=== PATIENT | male | born 1955 | race Caucasian/White ===

== ENCOUNTER 2018-10-28 10:44 | Emergency (ER) | payer BC, MEDICAID ==
--- NOTE | 2018-10-28 11:29 | ED Physician Documentation ---
PD HPI MALE - Stated complaint Stated Complaint: BLOOD IN URINE - Chief complaint Chief Complaint: General - History obtained from History obtained from: Patient - History of Present Illness Timing - onset: Today Timing - duration: Hours Timing - details: Abrupt onset (feeling okay and then had urination this morning and noted grossly bloody.) Associated symptoms: Hematuria. No: Dysuria, Urinary frequency, Genital sore / lesion, Abdominal pain PD HPI MALE CONTRIB FACTORS: Not sexually active. No: Exposed to STD Similar symptoms before: Has not had sx before Recently seen: Not recently seen Review of Systems Constitutional: denies: Fever, Chills, Myalgias Nose: denies: Rhinorrhea / runny nose, Congestion Throat: denies: Sore throat Respiratory: denies: Cough : reports: Hematuria. denies: Dysuria Skin: denies: Rash, Lesions PD PAST MEDICAL HISTORY - Past Medical History Cardiovascular: Peripheral Vascular Disease Respiratory: None Neuro: None Endocrine/Autoimmune: None - Present Medications Home Medications: Ambulatory Orders Medication Instructions Recorded Confirmed Aspirin 81 mg PO 10/28/18 10/28/18 Clopidogrel [Plavix] 75 mg PO DAILY 10/28/18 10/28/18 Sulfamethox/Trimeth 800/160 1 each PO BID #14 tablet 10/28/18 [Bactrim Ds 800/160] - Allergies Allergies/Adverse Reactions: Allergies Allergy/AdvReac Type Severity Reaction Status Date / Time No Known Drug Allergies Allergy Verified 10/28/18 11:03 PD ED PE NORMAL - Vitals Vital signs reviewed: Yes - General General: Alert and oriented X 3, No acute distress, Well developed/nourished - Cardiac Cardiac: RRR, No murmur - Respiratory Respiratory: Clear bilaterally - Abdomen Abdomen: Soft, Non tender - Male Male : Other (normal external genitalia. No lesions. ) - Derm Derm: Normal color, Warm and dry - Neuro Neuro: Alert and oriented X 3, No motor deficit, Normal speech Results - Vitals Vitals: Vital Signs - 24 hr 10/28/18 10/28/18 11:03 13:14 Temperature 36.5 C Heart Rate 75 64 Respiratory 17 16 Rate Blood Pressure 141/94 H 139/83 H O2 Saturation 96 98 Oxygen O2 Source Room air - Labs Labs: Laboratory Tests 10/28/18 10/28/18 10/28/18 11:47 12:11 12:11 WBC 9.2 RBC 4.47 L Hgb 15.2 Hct 44.7 MCV 100.0 H MCH 34.0 H MCHC 34.0 RDW 13.0 Plt Count 309 MPV 9.4 Neut # (Auto) 6.1 Lymph # (Auto) 2.1 [place] # (Auto) 0.6 Eos # (Auto) 0.3 Baso # (Auto) 0.1 Absolute Nucleated RBC 0.00 Nucleated RBC % 0.0 Sodium 140 Potassium 4.3 Chloride 106 Carbon Dioxide 26 Anion Gap 8.0 BUN 15 Creatinine 1.1 Estimated GFR (MDRD) 68 L Glucose 117 H Calcium 9.2 Urine Color BROWN Urine Clarity CLOUDY Urine pH 6.5 Ur Specific [place] 1.025 Urine Protein >=300 H Urine Glucose (UA) 100 H Urine Ketones TRACE Urine Occult Blood LARGE H Urine Nitrite POSITIVE H Urine Bilirubin NEGATIVE Urine Urobilinogen 2 H Ur Leukocyte Esterase SMALL H Urine RBC TNTC H Urine WBC 6-10 H Ur Squamous Epith Cells NONE SEEN Urine Bacteria Few Ur Microscopic Review INDICATED Urine Culture Comments INDICATED PD MEDICAL DECISION MAKING - ED course Complexity details: considered differential (looks like a true UTI on UA, so can treat as that. Talked with patient about potential Urology f/u for concern of polyps, tumors, or such that could be causing bleeding, enhanced by the antiplatelet therapy. ), d/w patient Departure - Departure Disposition: 01 Home, Self Care Clinical Impression: Gross hematuria UTI (urinary tract infection) Qualifiers: Urinary tract infection type: acute cystitis Hematuria presence: with hematuria Qualified Code(s): N30.01 - Acute cystitis with hematuria Condition: Stable Record reviewed to determine appropriate education?: Yes Instructions: ED UTI Cystitis Male Follow-Up: Rayn Cam MD [Primary Care Provider] - Prescriptions: Sulfamethox/Trimeth 800/160 [Bactrim Ds 800/160] 1 each PO BID #14 tablet Comments: The urinalysis test today actually does show signs of an infection (they were able to discern that in with the blood as well). Therefore infection is the most likely cause of the blood in the urine, enhanced by the bleeding effect of the clopidogrel. Your blood count is good right now so it is "safe" for you to still have some bleeding while the infection is clearing. I would anticipate improving in the bleeding over the next day or two. Use Bactrim antibiotic twice daily for the next week for the bladder infection. Recheck if the bleeding has not decreased and stopped over the next 1 to 2 days. Hold your Plavix for 1 to 2 days until the bleeding has decreased or stopped. Discharge Date/Time: 10/28/18 13:14
[2018-10-28 12:03] LABS: GLUCOSE, URINE (UA) 100 mg/dL (NEGATIVE); KETONES,URINE (UA) TRACE mg/dL (NEGATIVE); LEUKOCYTE ESTERASE, URINE SMALL (NEGATIVE); NITRITE,URINE POSITIVE (NEGATIVE); OCCULT BLOOD,URINE LARGE (NEGATIVE); PH,URINE 6.5 PH (5.0-7.5); PROTEIN,URINE >=300 mg/dL (NEGATIVE); UROBILINOGEN,URINE 2 E.U./dL (NORMAL)
[2018-10-28 12:04] LABS: CLARITY,URINE CLOUDY (CLEAR)
[2018-10-28] MEDS ORDERED: SULFAMETH/TRIMETH DS 800/160 MG TABLET PO STA (12:04)
[2018-10-28 12:08] LABS: BILIRUBIN,URINE NEGATIVE (NEGATIVE); ICTOTEST,URINE NEGATIVE
[2018-10-28 12:16] LABS: RBC,URINE TNTC /HPF (0-5)
[2018-10-28 12:17] LABS: BACTERIA,URINE Few /HPF (None Seen); SQUAMOUS EPITHELIAL CELL,UR NONE SEEN (<= Few)
[2018-10-28 12:18] LABS: BASOPHILS # (AUTO) 0.1 10^3/uL (0.0-0.1); EOSINOPHILS # (AUTO) 0.3 10^3/uL (0.0-0.7); EOSINOPHILS % (AUTO) 2.8 %; HGB - HEMOGLOBIN 15.2 g/dL (14.0-18.0); LYMPHOCYTES # (AUTO) 2.1 10^3/uL (1.5-3.5); LYMPHOCYTES % (AUTO) 23.4 %; MEAN PLATELET VOLUME 9.4 fL (7.4-11.4); MONOCYTES # (AUTO) 0.6 10^3/uL (0.0-1.0); MONOCYTES % (AUTO) 6.1 %; NEUTROPHILS # (AUTO) 6.1 10^3/uL (1.5-6.6); NEUTROPHILS % (AUTO) 66.2 %; PLT - PLATELET COUNT 309 10^3/uL (130-450); RED BLOOD COUNT 4.47 10^6/uL (4.70-6.10); WHITE BLOOD COUNT 9.2 x10^3/uL (4.8-10.8)
[2018-10-28 12:29] LABS: CALCIUM 9.2 mg/dL (8.5-10.3); CREATININE 1.1 mg/dL (0.6-1.2)
[2018-10-28 13:15] VITALS: BP 139/83
== END 2018-10-28 13:14 | disposition home or self-care (01) ==
LOC: ED 10:44
DX: N30.01 Acute cystitis with hematuria (principal); Z79.01 Long term (current) use of anticoagulants
CPT/HCPCS: 36415; 80048; 81001; 85025; 87086; 99283; A9270; 81003

== ENCOUNTER 2018-10-30 17:55 | Outpatient (CLI) | payer MEDICAID ==
[2018-10-30] MEDS ORDERED: IOVERSOL 320 100 ML VIAL IVP ONE ×2 (18:33→19:11)
--- NOTE | 2018-10-30 23:10 | CT Report ---
Reason: HEMATURIA Procedure Date: 10/30/2018 Accession Number: [id number] / [id number] Procedure: CT - IVP CPT Code: FULL RESULT: EXAM: CT ABDOMEN AND PELVIS WITHOUT AND WITH CONTRAST (CT IVP) EXAM DATE: 10/30/2018 06:58 PM CLINICAL HISTORY: Hematuria. COMPARISONS: None. TECHNIQUE: Routine helical imaging was performed through the kidneys, ureters and bladder in the precontrast, postcontrast and delayed phase. IV Contrast: Yes. Reconstructions: Coronal and sagittal. In accordance with CT protocol optimization, one or more of the following dose reduction techniques were utilized for this exam: automated exposure control, adjustment of mA and/or KV based on patient size, or use of iterative reconstructive technique. FINDINGS: Lung Bases: Unremarkable. Right Kidney/Ureter: No stones, hydronephrosis, or solid-appearing masses. Left Kidney/Ureter: Approximately 2 mm nonobstructing left renal stone. No ureteral stones, hydronephrosis, or solid-appearing masses. Other Abdominal Organs: The liver, spleen, pancreas, gallbladder, and adrenal glands are unremarkable. Peritoneal Cavity/Bowel: No free fluid, free air or adenopathy. No masses. Bowel loops appear unremarkable. Pelvic Organs: Polypoid high-density masslike region at the posterior right paramedian aspect of the urinary bladder measuring approximately 36 x 34 mm in cross section and extending 39 mm in craniocaudal dimension. No other bladder masses or wall thickening seen. Prostate appears unremarkable. Vasculature: Normal. Bones: No significant abnormality. Other: No pelvic or retroperitoneal adenopathy. IMPRESSION: 1. Nearly 4 cm polypoid masslike region in the posterior aspect of the right paramedian urinary bladder could be partly hematoma but follow-up cystoscopy necessary to evaluate for concomitant urothelial carcinoma. 2. No evidence of metastatic disease in the abdomen/pelvis. 3. Tiny nonobstructing left renal stone. [facility] The call report notification system was initiated by Dr. Ciaran Zuniga at 11:09 PM on 10/30/2018.
== END 2018-10-30 17:56 | disposition home or self-care (01) ==
LOC: DI 17:55
PROVIDERS: ATTEND Family Medicine
DX: N32.89 Other specified disorders of bladder (principal); N20.0 Calculus of kidney
CPT/HCPCS: 74178

== ENCOUNTER 2018-11-03 11:23 | Emergency (ER) | payer MEDICAID ==
--- NOTE | 2018-11-03 12:24 | ED Physician Documentation ---
PD HPI MALE - Stated complaint Stated Complaint: CATH DISCOMFORT - Chief complaint Chief Complaint: UTI - History obtained from History obtained from: Patient - History of Present Illness Timing - onset: Yesterday Timing - duration: Days (couple) Timing - details: Gradual onset, Intermittant Associated symptoms: Hematuria (He is continued to have hematuria though its less than it had been.), Other (His main complaint today is discomfort at the tip of the penis when he moves around due to the Moore catheter. He had had t hat placed a couple of days ago because of urinary retention related to blood clots in the bladder from gross hematuria. He has been treated with a hematuria and apparent concurrent UTI 5 or 6 days prior to that. He states that had been improving though still having blood in the urine. He the Moore is draining without any clots notable the last day or 2. He states the tip of the penis is sore however) Recently seen: Clinic (Seen by urology in follow-up 4 days ago with a review of the CT scan he had had and the symptoms. He was told he does have a bladder tumor and is scheduled for a cystoscopic biopsy in 2 days. He is off of his aspirin and Plavix which had been held for couple days when he first presented with the hematuria. He had been on antibiotics for apparent UTI and is finished with those. He had a Moore placed few days ago because of urinary retention from clots.), Emergency Dept Review of Systems Constitutional: denies: Fever, Chills Nose: denies: Rhinorrhea / runny nose, Congestion Throat: denies: Sore throat Cardiac: denies: Chest pain / pressure Respiratory: denies: Cough GI: denies: Nausea, Vomiting : reports: Hematuria, Moore Problem Neurologic: denies: Generalized weakness PD PAST MEDICAL HISTORY - Past Medical History Cardiovascular: Peripheral Vascular Disease Respiratory: None Neuro: None Endocrine/Autoimmune: None : Benign prostate hypertrophy - Present Medications Home Medications: Ambulatory Orders Medication Instructions Recorded Confirmed Aspirin 81 mg PO 10/28/18 10/28/18 Clopidogrel [Plavix] 75 mg PO DAILY 10/28/18 10/28/18 Sulfamethox/Trimeth 800/160 1 each PO BID #14 tablet 10/28/18 [Bactrim Ds 800/160] Cephalexin [Keflex] 500 mg PO TID #15 capsule 11/03/18 Clotrimazole 1 applic TP QID #15 cream..g. 11/03/18 - Allergies Allergies/Adverse Reactions: Allergies Allergy/AdvReac Type Severity Reaction Status Date / Time No Known Drug Allergies Allergy Verified 10/30/18 19:58 - Social History Does the pt smoke?: Yes Smoking Status: Current every day smoker PD ED PE NORMAL - Vitals Vital signs reviewed: Yes - General General: Alert and oriented X 3, No acute distress, Well developed/nourished - Male Male : Other (moore in place and draining. suprapubic not tender. The penile meatus with some redness around the rim, c/w either irritation or consider mild yeast. Does not look bacterial and no purulence noted. ) - Back Back: No CVA TTP - Derm Derm: Normal color, Warm and dry Results - Vitals Vitals: Vital Signs - 24 hr 11/03/18 11/03/18 11/03/18 11:28 11:57 13:00 Temperature 36.3 C L 36.8 C Heart Rate 86 75 74 Respiratory 18 18 16 Rate Blood Pressure 144/84 H 136/79 H 129/115 H O2 Saturation 100 96 95 11/03/18 13:26 Temperature 36.5 C Heart Rate 72 Respiratory 16 Rate Blood Pressure 137/84 H O2 Saturation 97 Oxygen O2 Source Room air - Labs Labs: Laboratory Tests 11/03/18 12:20 Urine Color YELLOW Urine Clarity HAZY Urine pH 5.5 Ur Specific [place] 1.025 Urine Protein 30 H Urine Glucose (UA) NEGATIVE Urine Ketones NEGATIVE Urine Occult Blood LARGE H Urine Nitrite NEGATIVE Urine Bilirubin NEGATIVE Urine Urobilinogen 0.2 (NORMAL) Ur Leukocyte Esterase NEGATIVE Urine RBC 11-25 H Urine WBC 6-10 H Ur Squamous Epith Cells RARE Squamous Urine Bacteria Few Urine Mucus Few Strands Ur Microscopic Review INDICATED Urine Culture Comments INDICATED PD MEDICAL DECISION MAKING - ED course Complexity details: reviewed results (suggestion of some UTI still, and will treat for that so that okay for cystoscopy in 2 days. ), considered differential, d/w patient Departure - Departure Disposition: 01 Home, Self Care Clinical Impression: Penile irritation Condition: Stable Record reviewed to determine appropriate education?: Yes Prescriptions: Cephalexin [Keflex] 500 mg PO TID #15 capsule Clotrimazole 1 applic TP QID #15 cream..g. Comments: I would keep the Moore catheter in place to ensure he keeps draining well since he is still have trace of blood in the urine. There is still a mild sign of infection with some white cells in a few bacteria and would be best not to have an infection at the time of the biopsy. Therefore week ago with cephalexin antibiotic 3 times daily for the next few days. This would have no interference with other medications and not prohibit being able to have the biopsy. Use some Chlortrimazole cream to the tip of the penis as it looks just slightly irritated from the Moore and may have a hint of a fungal skin infection. This will help lubricated as well. Do this 3 or 4 times a day. Follow-up with your urologist as planned for the cystoscopic biopsy in a couple of days. Discharge Date/Time: 11/03/18 13:28
[2018-11-03 12:41] LABS: BILIRUBIN,URINE NEGATIVE (NEGATIVE); GLUCOSE, URINE (UA) NEGATIVE (NEGATIVE); KETONES,URINE (UA) NEGATIVE (NEGATIVE); LEUKOCYTE ESTERASE, URINE NEGATIVE (NEGATIVE); NITRITE,URINE NEGATIVE (NEGATIVE); OCCULT BLOOD,URINE LARGE (NEGATIVE); PH,URINE 5.5 PH (5.0-7.5); PROTEIN,URINE 30 mg/dL (NEGATIVE); UROBILINOGEN,URINE 0.2 (NORMAL) E.U./dL (NORMAL)
[2018-11-03] MEDS ORDERED: MUPIROCIN 2% OINT 1 GM TOP STA (12:47)
[2018-11-03 12:51] LABS: CLARITY,URINE HAZY (CLEAR)
[2018-11-03 13:00] LABS: BACTERIA,URINE Few /HPF (None Seen); MUCUS,URINE Few Strands; SQUAMOUS EPITHELIAL CELL,UR RARE Squamous (<= Few)
[2018-11-03] MEDS ORDERED: cephALEXin 250 MG CAPSULE PO STA (13:06)
[2018-11-03 13:28] VITALS: BP 137/84
== END 2018-11-03 13:28 | disposition home or self-care (01) ==
LOC: ED 11:23
DX: N48.89 Other specified disorders of penis (principal); R31.0 Gross hematuria; F17.200 Nicotine dependence, unspecified, uncomplicated; Z96.0 Presence of urogenital implants
CPT/HCPCS: 81001; 87086; 99283; A9270; 81003

== ENCOUNTER 2020-12-07 11:52 | Emergency (ER) | payer MEDICAID ==
[2020-12-07] MEDS ORDERED: PROPARACAINE 0.5% OPHTH DROPS 15 ML EACHEYE STA (12:09)
--- NOTE | 2020-12-07 12:41 | ED Physician Documentation ---
PD HPI OPHTHO - Stated complaint Stated Complaint: EYE PX - Chief complaint Chief Complaint: Heent - History obtained from History obtained from: Patient - History of Present Illness Timing - onset: How many weeks ago (1) Timing - duration: Weeks (1) Timing - details: Abrupt onset Pain level max: 4 Pain level now: 4 Location: Both Quality / character: Burning, Aching Associated symptoms: Redness, Tearing, FB sensation Contributing factors: Other (sawdust and drywall dust) Recently seen: Not recently seen Review of Systems Constitutional: denies: Fever Eyes: reports: Photophobia. denies: Loss of vision, Decreased vision Ears: denies: Ear pain Nose: denies: Rhinorrhea / runny nose, Congestion GI: denies: Vomiting, Diarrhea PD PAST MEDICAL HISTORY - Past Medical History Past Medical History: Yes Cardiovascular: Peripheral Vascular Disease Respiratory: None Neuro: None Endocrine/Autoimmune: None GI: None : Benign prostate hypertrophy HEENT: None Psych: None Musculoskeletal: None Derm: None - Past Surgical History Past Surgical History: No - Present Medications Home Medications: Ambulatory Orders Medication Instructions Recorded Confirmed Aspirin 81 mg PO DAILY 10/28/18 12/07/20 Clopidogrel [Plavix] 75 mg PO DAILY 10/28/18 12/07/20 Polymyxin B/Trimeth Ophth Drop 1 drops EACHEYE Q3H 7 Days #1 12/07/20 [Polytrim Ophth Drops] bottle - Allergies Allergies/Adverse Reactions: Allergies Allergy/AdvReac Type Severity Reaction Status Date / Time No Known Drug Allergies Allergy Verified 12/07/20 12:00 - Social History Does the pt smoke?: Yes Smoking Status: Current every day smoker Does the pt drink ETOH?: No Does the pt have substance abuse?: No - Immunizations Immunizations are current?: Yes - POLST Patient has POLST: No PD ED PE NORMAL - Vitals Vital signs reviewed: Yes - General General: Alert and oriented X 3, No acute distress - HEENT HEENT: Moist mucous membranes, Other (b conjunctiva are injected. tearing present. No foreign bodies visible on eversion of the eyelids. Small punctate fluorescein uptake in the cornea bilaterally, left lower quadrant bilaterally.) - Neck Neck: Supple, no meningeal sign - Derm Derm: Warm and dry - Neuro Neuro: Alert and oriented X 3 Results - Vitals Vitals: Vital Signs - 24 hr 12/07/20 11:55 Temperature 36.3 C L Heart Rate 86 Respiratory 14 Rate Blood Pressure 125/82 H O2 Saturation 98 Oxygen O2 Source Room air PD MEDICAL DECISION MAKING - ED course Complexity details: considered differential, d/w patient ED course: Patient with bilateral corneal abrasions. No retained foreign body. Symptoms resolved with proparacaine in the eye. Will place on Polytrim ophthalmic and have him follow-up with his doctor as needed for further care. Patient counseled regarding signs and symptoms for which I believe and urgent re- evaluation would be necessary. Patient with good understanding of and agreement to plan and is comfortable going home at this time This document was made in part using voice recognition software. While efforts are made to proofread this document, sound alike and grammatical errors may occur. Departure - Departure Disposition: 01 Home, Self Care Clinical Impression: Corneal abrasion of both eyes Qualifiers: Encounter type: initial encounter Qualified Code(s): S05.01XA - Injury of conjunctiva and corneal abrasion without foreign body, right eye, initial encounter Condition: Good Instructions: ED Eye Injury Corneal Abrasion Follow-Up: Ciaran Nagy MD [Primary Care Provider] - As Needed Prescriptions: Polymyxin B/Trimeth Ophth Drop [Polytrim Ophth Drops] 1 drops EACHEYE Q3H 7 Days #1 bottle Comments: Your prescription was sent to [facility] in [place]. Please use the medication as prescribed. Follow-up with your doctor for further care. Return if you worsen. Artificial tears and gel tears will likely help your symptoms as well.
[2020-12-07 12:58] VITALS: BP 133/81
== END 2020-12-07 12:59 | disposition home or self-care (01) ==
LOC: ED 11:52
DX: S05.02XA Injury of conjunctiva and corneal abrasion without foreign body, left eye, initial encounter (principal); S05.01XA Injury of conjunctiva and corneal abrasion without foreign body, right eye, initial encounter; X58.XXXA Exposure to other specified factors, initial encounter; Y93.H3 Activity, building and construction; F17.200 Nicotine dependence, unspecified, uncomplicated
CPT/HCPCS: 99282; 99283; J3490

== ENCOUNTER 2022-04-04 12:17 | Outpatient (CLI) | payer MEDICARE, MEDICAID | END 2022-04-04 12:18 | disposition home or self-care (01) | LOC: DI 12:17 | PROVIDERS: ATTEND Physician Assistant | DX: I21.02 ST elevation (STEMI) myocardial infarction involving left anterior descending coronary artery (principal); I51.7 Cardiomegaly; R93.1 Abnormal findings on diagnostic imaging of heart and coronary circulation; I51.89 Other ill-defined heart diseases; I34.0 Nonrheumatic mitral (valve) insufficiency; Z95.828 Presence of other vascular implants and grafts | CPT/HCPCS: 93306 ==

== ENCOUNTER 2022-04-17 12:01 | Outpatient (CLI) | payer MEDICARE, MEDICAID ==
[2022-04-17 17:53] LABS: BASOPHILS # (AUTO) 0.1 10^3/uL (0.0-0.1); BASOPHILS % (AUTO) 0.8 %; EOSINOPHILS # (AUTO) 0.2 10^3/uL (0.0-0.7); EOSINOPHILS % (AUTO) 2.6 %; HCT - HEMATOCRIT 45.3 % (42.0-52.0); HGB - HEMOGLOBIN 14.3 g/dL (14.0-18.0); LYMPHOCYTES # (AUTO) 1.8 10^3/uL (1.5-3.5); LYMPHOCYTES % (AUTO) 19.2 %; MEAN CORPUSCULAR HEMOGLOBIN 29.3 pg (27.0-31.0); MEAN CORPUSCULAR HGB CONC 31.6 g/dL (32.0-36.0); MEAN CORPUSCULAR VOLUME 92.8 fL (80.0-94.0); MEAN PLATELET VOLUME 9.3 fL (7.4-11.4); MONOCYTES # (AUTO) 0.7 10^3/uL (0.0-1.0); MONOCYTES % (AUTO) 7.2 %; NEUTROPHILS # (AUTO) 6.5 10^3/uL (1.5-6.6); NEUTROPHILS % (AUTO) 69.9 %; PLT - PLATELET COUNT 421 10^3/uL (130-450); RED BLOOD COUNT 4.88 10^6/uL (4.70-6.10); RED CELL DISTRIBUTION WIDTH 12.6 % (12.0-15.0); WHITE BLOOD COUNT 9.3 x10^3/uL (4.8-10.8)
[2022-04-17 18:08] LABS: ALBUMIN 3.3 g/dL (3.2-5.5); ALBUMIN/GLOBULIN RATIO 0.8 (1.0-2.2); BILIRUBIN,TOTAL 0.5 mg/dL (0.2-1.0); CALCIUM 9.2 mg/dL (8.5-10.3); POTASSIUM 4.6 mmol/L (3.5-5.0); TOTAL PROTEIN 7.2 g/dL (6.7-8.2)
== END 2022-04-17 12:02 | disposition home or self-care (01) ==
LOC: LAB.N 12:01
PROVIDERS: ATTEND Internal Medicine Cardiovascular Disease
DX: I25.10 Atherosclerotic heart disease of native coronary artery without angina pectoris (principal)
CPT/HCPCS: 36415; 80053; 85025

== ENCOUNTER 2022-04-27 11:09 | Outpatient (CLI) | payer MEDICARE, MEDICAID ==
[2022-04-27 17:35] LABS: BASOPHILS # (AUTO) 0.1 10^3/uL (0.0-0.1); BASOPHILS % (AUTO) 1.2 %; EOSINOPHILS # (AUTO) 0.3 10^3/uL (0.0-0.7); EOSINOPHILS % (AUTO) 2.7 %; HCT - HEMATOCRIT 47.7 % (42.0-52.0); HGB - HEMOGLOBIN 15.1 g/dL (14.0-18.0); LYMPHOCYTES # (AUTO) 1.9 10^3/uL (1.5-3.5); LYMPHOCYTES % (AUTO) 20.4 %; MEAN CORPUSCULAR HEMOGLOBIN 29.2 pg (27.0-31.0); MEAN CORPUSCULAR HGB CONC 31.7 g/dL (32.0-36.0); MEAN CORPUSCULAR VOLUME 92.3 fL (80.0-94.0); MEAN PLATELET VOLUME 9.4 fL (7.4-11.4); MONOCYTES # (AUTO) 0.7 10^3/uL (0.0-1.0); MONOCYTES % (AUTO) 7.2 %; NEUTROPHILS # (AUTO) 6.3 10^3/uL (1.5-6.6); PLT - PLATELET COUNT 459 10^3/uL (130-450); RED BLOOD COUNT 5.17 10^6/uL (4.70-6.10); WHITE BLOOD COUNT 9.3 x10^3/uL (4.8-10.8)
[2022-04-27 18:16] LABS: THYROID STIMULATING HORMONE 4.18 uIU/mL (0.34-5.60)
[2022-04-27 18:18] LABS: ALBUMIN 3.5 g/dL (3.2-5.5); ALBUMIN/GLOBULIN RATIO 0.8 (1.0-2.2); ALKALINE PHOSPHATASE 68 IU/L (42-121); ALT ALANINE AMINOTRANSFERASE 18 IU/L (10-60); AST ASPARTATE AMINOTRANSFERASE 19 IU/L (10-42); BILIRUBIN,TOTAL 0.8 mg/dL (0.2-1.0); BUN - BLOOD UREA NITROGEN 17 mg/dL (6-20); CALCIUM 9.3 mg/dL (8.5-10.3); CARBON DIOXIDE - CO2 24 mmol/L (21-32); CHLORIDE 103 mmol/L (101-111); CHOL/HDL RATIO 2.2 (<5.0); CHOLESTEROL 129 mg/dL; GFR - MDRD 75 (>89); GLUCOSE 301 mg/dL (70-100); HDL CHOLESTEROL 59 mg/dL; LDL CHOLESTEROL,CALCULATED 57 mg/dL; POTASSIUM 4.9 mmol/L (3.5-5.0); SODIUM 135 mmol/L (135-145); TOTAL PROTEIN 7.8 g/dL (6.7-8.2); TRIGLYCERIDES 66 mg/dL; VLDL CHOLESTEROL 13 mg/dL
[2022-04-27 21:10] LABS: ESTIMATED AVERAGE GLUCOSE 212 mg/dL (70-100)
== END 2022-04-27 11:10 | disposition home or self-care (01) ==
LOC: LAB.N 11:09
PROVIDERS: ATTEND Physician Assistant
DX: I21.02 ST elevation (STEMI) myocardial infarction involving left anterior descending coronary artery (principal); R73.01 Impaired fasting glucose; Z12.5 Encounter for screening for malignant neoplasm of prostate
CPT/HCPCS: 36415; 80053; 80061; 83036; 84443; 85025; G0103; 83721; 84153

== ENCOUNTER 2022-07-23 00:53 | Outpatient (CLI) | payer MEDICARE, MEDICAID | END 2022-07-23 23:59 | disposition short-term general hospital (02) | LOC: EMS 00:53 | DX: R06.02 Shortness of breath (principal); Z72.820 Sleep deprivation | CPT/HCPCS: A0425; A0429 ==

== ENCOUNTER 2022-11-30 12:10 | Outpatient (CLI) | payer MEDICARE, MEDICAID ==
[2022-11-30 17:59] LABS: BASOPHILS # (AUTO) 0.1 10^3/uL (0.0-0.1); BASOPHILS % (AUTO) 0.5 %; EOSINOPHILS # (AUTO) 0.2 10^3/uL (0.0-0.7); EOSINOPHILS % (AUTO) 1.3 %; HCT - HEMATOCRIT 41.7 % (42.0-52.0); HGB - HEMOGLOBIN 13.6 g/dL (14.0-18.0); LYMPHOCYTES # (AUTO) 1.8 10^3/uL (1.5-3.5); LYMPHOCYTES % (AUTO) 15.3 %; MEAN CORPUSCULAR HEMOGLOBIN 29.8 pg (27.0-31.0); MEAN CORPUSCULAR HGB CONC 32.6 g/dL (32.0-36.0); MEAN CORPUSCULAR VOLUME 91.4 fL (80.0-94.0); MEAN PLATELET VOLUME 8.8 fL (7.4-11.4); MONOCYTES # (AUTO) 0.8 10^3/uL (0.0-1.0); MONOCYTES % (AUTO) 7.2 %; NEUTROPHILS # (AUTO) 8.8 10^3/uL (1.5-6.6); NEUTROPHILS % (AUTO) 75.2 %; PLT - PLATELET COUNT 496 10^3/uL (130-450); RED BLOOD COUNT 4.56 10^6/uL (4.70-6.10); RED CELL DISTRIBUTION WIDTH 14.2 % (12.0-15.0); WHITE BLOOD COUNT 11.7 x10^3/uL (4.8-10.8)
[2022-11-30 18:19] LABS: ALBUMIN 3.7 g/dL (3.2-5.5); ALKALINE PHOSPHATASE 69 IU/L (42-121); ALT ALANINE AMINOTRANSFERASE 24 IU/L (10-60); AST ASPARTATE AMINOTRANSFERASE 19 IU/L (10-42); BILIRUBIN,TOTAL 0.6 mg/dL (0.2-1.0); BUN - BLOOD UREA NITROGEN 18 mg/dL (6-20); CALCIUM 9.8 mg/dL (8.5-10.3); CARBON DIOXIDE - CO2 23 mmol/L (21-32); CHLORIDE 103 mmol/L (101-111); CHOL/HDL RATIO 2.2 (<5.0); CHOLESTEROL 111 mg/dL; CREATININE 1.1 mg/dL (0.6-1.3); GFR - MDRD 67 (>89); GLUCOSE 182 mg/dL (74-104); HDL CHOLESTEROL 50 mg/dL; LDL CHOLESTEROL,CALCULATED 45 mg/dL; LDL/HDL RATIO 0.9 (<3.6); POTASSIUM 4.3 mmol/L (3.5-4.5); SODIUM 135 mmol/L (135-145); TOTAL PROTEIN 7.4 g/dL (6.4-8.9); TRIGLYCERIDES 81 mg/dL (48-352); VLDL CHOLESTEROL 16 mg/dL
[2022-11-30 18:32] LABS: THYROID STIMULATING HORMONE 3.89 uIU/mL (0.34-5.60)
[2022-11-30 20:31] LABS: ESTIMATED AVERAGE GLUCOSE 197 mg/dL (70-100); HEMOGLOBIN A1c% 8.5 % (4.27-6.07)
== END 2022-11-30 12:11 | disposition home or self-care (01) ==
LOC: LAB.N 12:10
PROVIDERS: ATTEND Physician Assistant
DX: E11.8 Type 2 diabetes mellitus with unspecified complications (principal); I25.10 Atherosclerotic heart disease of native coronary artery without angina pectoris; D64.9 Anemia, unspecified
CPT/HCPCS: 36415; 80053; 80061; 83036; 83721; 84443; 85025

== ENCOUNTER 2023-04-10 08:22 | Outpatient (CLI) | payer MEDICARE | END 2023-04-10 23:59 | disposition short-term general hospital (02) | LOC: EMS 08:22 | DX: I21.3 ST elevation (STEMI) myocardial infarction of unspecified site (principal) | CPT/HCPCS: A0425; A0427 ==

== ENCOUNTER 2023-05-09 14:37 | Outpatient (CLI) | payer MEDICARE ==
[2023-05-09 17:43] LABS: BASOPHILS # (AUTO) 0.1 10^3/uL (0.0-0.1); BASOPHILS % (AUTO) 1.4 %; EOSINOPHILS # (AUTO) 0.5 10^3/uL (0.0-0.7); EOSINOPHILS % (AUTO) 6.3 %; HCT - HEMATOCRIT 39.2 % (42.0-52.0); HGB - HEMOGLOBIN 11.9 g/dL (14.0-18.0); LYMPHOCYTES # (AUTO) 2.5 10^3/uL (1.5-3.5); LYMPHOCYTES % (AUTO) 29.3 %; MEAN CORPUSCULAR HEMOGLOBIN 27.2 pg (27.0-31.0); MEAN CORPUSCULAR HGB CONC 30.4 g/dL (32.0-36.0); MEAN CORPUSCULAR VOLUME 89.5 fL (80.0-94.0); MEAN PLATELET VOLUME 9.6 fL (7.4-11.4); MONOCYTES # (AUTO) 0.7 10^3/uL (0.0-1.0); MONOCYTES % (AUTO) 7.9 %; NEUTROPHILS # (AUTO) 4.7 10^3/uL (1.5-6.6); NEUTROPHILS % (AUTO) 54.8 %; PLT - PLATELET COUNT 409 10^3/uL (130-450); RED BLOOD COUNT 4.38 10^6/uL (4.70-6.10); RED CELL DISTRIBUTION WIDTH 15.9 % (12.0-15.0); WHITE BLOOD COUNT 8.6 x10^3/uL (4.8-10.8)
[2023-05-09 18:17] LABS: % IRON SATURATION 13 % (20-50); ALBUMIN 3.8 g/dL (3.2-5.5); ALBUMIN/GLOBULIN RATIO 1.1 (1.0-2.2); ALKALINE PHOSPHATASE 69 IU/L (42-121); ALT ALANINE AMINOTRANSFERASE 13 IU/L (10-60); AST ASPARTATE AMINOTRANSFERASE 16 IU/L (10-42); BILIRUBIN,TOTAL 0.5 mg/dL (0.2-1.0); BUN - BLOOD UREA NITROGEN 21 mg/dL (6-20); CALCIUM 9.7 mg/dL (8.5-10.3); CARBON DIOXIDE - CO2 24 mmol/L (21-32); CHLORIDE 106 mmol/L (101-111); CHOL/HDL RATIO 2.1 (<5.0); CHOLESTEROL 135 mg/dL; CREATININE 1.4 mg/dL (0.6-1.3); GFR - MDRD 51 (>89); GLUCOSE 126 mg/dL (74-104); HDL CHOLESTEROL 63 mg/dL; IRON 49 ug/dL (50-212); LDL CHOLESTEROL,CALCULATED 53 mg/dL; LDL/HDL RATIO 0.8 (<3.6); POTASSIUM 4.4 mmol/L (3.5-4.5); SODIUM 136 mmol/L (135-145); TOTAL IRON BINDING CAPACITY 391 ug/dL (250-450); TOTAL PROTEIN 7.2 g/dL (6.4-8.9); TRANSFERRIN 279 mg/dL (203-362); TRIGLYCERIDES 93 mg/dL (48-352); VLDL CHOLESTEROL 19 mg/dL
[2023-05-09 18:49] LABS: FERRITIN 55.1 ng/mL (23.9-336.2)
[2023-05-09 20:22] LABS: ESTIMATED AVERAGE GLUCOSE 180 mg/dL (70-100); HEMOGLOBIN A1c% 7.9 % (4.27-6.07)
== END 2023-05-09 14:38 | disposition home or self-care (01) ==
LOC: LAB.N 14:37
PROVIDERS: ATTEND Physician Assistant
DX: E11.8 Type 2 diabetes mellitus with unspecified complications (principal); D64.9 Anemia, unspecified; N40.1 Benign prostatic hyperplasia with lower urinary tract symptoms
CPT/HCPCS: 36415; 80053; 80061; 82728; 83036; 83540; 83721; 84153; 84466; 85025

== ENCOUNTER 2023-08-28 12:23 | Outpatient (CLI) | payer MEDICARE ==
[2023-08-28] MEDS ORDERED: iohexoL-300 100 ML VIAL ONE (12:30)
[2023-08-28 13:21] LABS: CREATININE 1.3 mg/dL (0.6-1.3)
[2023-08-28] MEDS: iohexoL-300 100 ML VIAL IVP ONE (17:09)
--- NOTE | 2023-08-29 01:15 | CT Report ---
PROCEDURE: Chest W INDICATIONS: MEDIASTINAL LYMPHADENOPATHY TECHNIQUE: Helical axial CT of the chest was obtained after an intravenous contrast injection and ref ormatted in multiple planes. Radiation dose reduction was achieved using automated exposure control, adjustment of mA and/or kV according to patient size. COMPARISON: None FINDINGS: Lungs and pleura: Lungs and pleural spaces are clear without pulmonary infiltrate, pneumothorax or pl eural effusion. Mediastinum: Heart size is normal. No pericardial effusion. No large vessel abnormality. Prominent pr etracheal but technically nonenlarged lymph node measures 0.8 x 2.2 cm. Additional smaller mediastina l lymph nodes present. No hilar or axillary adenopathy Chest wall and lower neck: Thyroid is unremarkable. No axillary or supraclavicular adenopathy by size . Bones: No aggressive osseous abnormality. Upper Abdomen: Unremarkable. IMPRESSION: Prominent but technically nonenlarged pretracheal lymph node measures 0.8 x 2.2 cm. Additional small mediastinal nodes noted. No adenopathy. Reviewed by: Angel Rehman MD on 08/29/2023 12:14 AM ROGELIO Approved by: Angel Rehman MD on 08/29/2023 12:14 AM ROGELIO Station ID: [id number]
== END 2023-08-28 12:24 | disposition home or self-care (01) ==
LOC: LAB 12:23
PROVIDERS: ATTEND Physician Assistant
DX: R59.0 Localized enlarged lymph nodes (principal)
CPT/HCPCS: 36415; 71260; 82565; Q9967